=== PATIENT | male | born 1970 | race Two or more races ===

== ENCOUNTER → 2024-02-15 | Emergency (ER) | payer OTHER ==
[~2024-02-15] VITALS: Ht 177.8 cm; Wt 66.2 kg
[~2024-02-15] MED LIST: CEFADROXIL500 MG PO; CEFTRIAXONE SODIUM 1,000 MG VIAL IM STA; FLONASE16 GM IH
== END | disposition home or self-care (01) ==
LOC: ER 19:12
DX: J32.9 Chronic sinusitis, unspecified (principal)